=== PATIENT | female | born 1995 | race Caucasian/White ===

== ENCOUNTER 2016-11-18 21:54 | Emergency (ER) | payer BC ==
[2016-11-18] MEDS ORDERED: ALPRAZolam 0.25 MG TAB ONE (22:54)
== END 2016-11-18 23:37 | disposition home or self-care (01) ==
LOC: NAV ERS 21:54
DX: F41.9 Anxiety disorder, unspecified (principal); F17.210 Nicotine dependence, cigarettes, uncomplicated